=== PATIENT | male | born 1990 | race Caucasian/White ===

== ENCOUNTER 2017-03-19 14:16 | Emergency (ER) | payer OTHER, MEDICAID ==
[2017-03-19 14:39] VITALS: BP 123/71
[2017-03-19] MEDS ORDERED: IBUPROFEN 800 MG TABLET PO STA (15:55)
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
== END 2017-03-19 16:44 | disposition home or self-care (01) ==
LOC: ED 14:16
DX: S33.5XXA Sprain of ligaments of lumbar spine, initial encounter (principal); S23.41XA Sprain of ribs, initial encounter; V47.5XXA Car driver injured in collision with fixed or stationary object in traffic accident, initial encounter; F17.200 Nicotine dependence, unspecified, uncomplicated
CPT/HCPCS: 71101; 72100; 99283; A9270

== ENCOUNTER 2017-08-28 07:15 | Emergency (ER) | payer MEDICAID, OTHER ==
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
[2017-08-28] MEDS ORDERED: IBUPROFEN 800 MG TABLET PO STA (08:57)
--- NOTE | 2017-08-28 09:33 | XRAY Preliminary Report ---
Exam: XR LUMBAR SPINE 2 VIEW IMPRESSION: Normal lumbar spine radiography. No acute osseous abnormality. [facility] SITE ID: [id number]
--- NOTE | 2017-08-28 09:33 | XRAY Report ---
EXAM: LUMBOSACRAL SPINE RADIOGRAPHY EXAM DATE: 08/28/2017 09:03 AM. CLINICAL HISTORY: Low back pain. COMPARISONS: 03/19/2017. TECHNIQUE: 3 views. FINDINGS: Alignment: Normal. No spondylolisthesis or scoliosis. Bones: Five [id number] lumbar vertebral bodies are present. No fractures or bone lesions. Disks: Normal. Disk heights are maintained. Facets: No degenerative changes. Sacroiliac Joints: Unremarkable. Soft Tissues: Normal. The visualized bowel gas pattern is normal. IMPRESSION: Normal lumbar spine radiography. No acute osseous abnormality. [facility] Referring Provider Line: [phone] SITE ID: [id number]
[2017-08-28 10:00] VITALS: BP 115/78
== END 2017-08-28 09:57 | disposition home or self-care (01) ==
LOC: ED 07:15
DX: S33.5XXA Sprain of ligaments of lumbar spine, initial encounter (principal); X50.0XXA Overexertion from strenuous movement or load, initial encounter; Y93.H2 Activity, gardening and landscaping; Y99.0 Civilian activity done for income or pay; F17.200 Nicotine dependence, unspecified, uncomplicated
CPT/HCPCS: 72100; 99283; A9270